=== PATIENT | female | born 1955 | race American Indian/Alaskan Native ===

== ENCOUNTER 2017-04-13 12:53 | Emergency (ER) | payer SELFPAY ==
[2017-04-13 14:00] LABS: Basophils % (Auto) 1.8 % (0.0-1.8); Eosinophils % (Auto) 6.1 % (0.0-4.3); Hematocrit 39.6 % (30.3-42.9); Hemoglobin 13.3 gm/dl (10.1-14.3); Mean Corpuscular HGB Conc 34 % (30-34); Mean Corpuscular Hemoglobin 29 pg (28-32); Mean Corpuscular Volume 87 fl (79-97); Platelet Count 255 K/mm3 (140-440); Red Blood Count 4.54 M/mm3 (3.65-5.03); Red Cell Distribution Width 13.7 % (13.2-15.2); White Blood Count 6.8 K/mm3 (4.5-11.0)
[2017-04-13 14:11] LABS: Anion Gap 16 mmol/L; BUN/Creatinine Ratio 22.85; Blood Urea Nitrogen 16 mg/dL (7-17); Calcium 8.7 mg/dL (8.4-10.2); Carbon Dioxide 24 mmol/L (22-30); Chloride 98.3 mmol/L (98-107); Glucose 282 mg/dL (65-100); Potassium 3.9 mmol/L (3.6-5.0); Sodium 134 mmol/L (137-145)
[2017-04-13] MEDS ORDERED: ASPIRIN PO ONE (20:41)
--- NOTE | 2017-04-13 20:45 | Emergency Department Report ---
HPI - General Chief Complaint: Chest Pain Time Seen by Provider: 04/13/17 20:29 - HPI HPI: Room 5 The patient is 61-year-old female presenting with a chief complaint of back and chest pain. The patient states for 1 week she is a constant pain in her right back radiating to her chest. Patient states she also has had intermittent isolated chest pain. The patient states occasionally her pain is associated with shortness of breath and nausea. Patient admits to occasional diaphoresis when the pain does not relent. Patient denies vomiting. The patient states she has pain currently gives a score of 6/10. Patient states she's never had a stress test or cardiac catheterization. The patient describes the pain as burning/pinching/stabbing Location: Right back, chest Duration: 1 week Quality: [see above] Severity: 6/10 Modifying factors: [see above] Context: [see above] Mode of transportation: Unknown ED Past Medical Hx - Past Medical History Hx Diabetes: Yes (DIET CONTROLLED) - Surgical History Past Surgical History?: No - Family History Family history: no significant - Social History Smoking Status: Current Every Day Smoker (approximately one pack per day) Substance Use Type: None - Medications Home Medications: Home Medications Medication Instructions Recorded Confirmed Last Taken Type Aspirin EC [Aspirin Enteric Coated 325 mg PO QDAY #30 tablet. 04/13/17 Unknown Rx TAB] Cyclobenzaprine [Flexeril] 10 mg PO TID PRN #14 tablet 04/13/17 Unknown Rx ED Review of Systems ROS: Stated complaint: CHEST AND BACK PAIN Other details as noted in HPI Comment: All other systems reviewed and negative Constitutional: diaphoresis Eyes: denies: eye pain, eye discharge, vision change ENT: denies: ear pain, throat pain Respiratory: shortness of breath Cardiovascular: chest pain Endocrine: no symptoms reported Gastrointestinal: nausea. denies: vomiting Genitourinary: denies: urgency, dysuria, discharge Musculoskeletal: back pain, myalgia Skin: denies: rash, lesions Neurological: denies: headache, weakness, paresthesias Psychiatric: denies: anxiety, depression Hematological/Lymphatic: denies: easy bleeding, easy bruising Physical Exam - Physical Exam Vital Signs: Vital Signs 04/13/17 04/13/17 04/13/17 13:21 20:01 20:04 Temperature 99.0 F 98.3 F Pulse Rate 98 H 81 Respiratory 16 20 20 Rate Blood Pressure 178/74 Blood Pressure 181/90 [Left] O2 Sat by Pulse 99 98 Oximetry Physical Exam: GENERAL: The patient is well-developed well-nourished female lying on stretcher not appearing to be in acute distress. [] HEENT: Normocephalic. Atraumatic. Extraocular motions are intact. Patient has moist mucous membranes. NECK: Supple. Trachea midline CHEST/LUNGS: Clear to auscultation. There is no respiratory distress noted. HEART/CARDIOVASCULAR: Regular. There is no tachycardia. There is no gallop rub or murmur. 2+ radial pulse on the right ABDOMEN: Abdomen is soft, nontender. Patient has normal bowel sounds. There is no abdominal distention. SKIN: There is no rash. There is no edema. There is no diaphoresis. NEURO: The patient is awake, alert, and oriented. The patient is cooperative. The patient has normal speech MUSCULOSKELETAL: There is no tenderness to palpation of the right back. There is some back pain with range of motion of the right upper extremity but it does not cause radiation to the chest. There is no evidence of acute injury. ED Course Vital Signs 04/13/17 04/13/17 04/13/17 13:21 20:01 20:04 Temperature 99.0 F 98.3 F Pulse Rate 98 H 81 Respiratory 16 20 20 Rate Blood Pressure 178/74 Blood Pressure 181/90 [Left] O2 Sat by Pulse 99 98 Oximetry ED Medical Decision Making - Lab Data Result diagrams: 04/13/17 13:32 04/13/17 13:32 Laboratory Tests 04/13/17 04/13/17 04/13/17 13:32 13:32 16:25 WBC 6.8 RBC 4.54 Hgb 13.3 Hct 39.6 MCV 87 MCH 29 MCHC 34 RDW 13.7 Plt Count 255 Lymph % (Auto) 24.0 [place] % (Auto) 5.9 Eos % (Auto) 6.1 H Baso % (Auto) 1.8 Lymph # 1.6 [place] # 0.4 Eos # 0.4 Baso # 0.1 Seg Neutrophils % 62.2 Seg Neutrophils # 4.2 Sodium 134 L Potassium 3.9 Chloride 98.3 Carbon Dioxide 24 Anion Gap 16 BUN 16 Creatinine 0.7 Estimated GFR > 60 BUN/Creatinine Ratio 22.85 Glucose 282 H Calcium 8.7 Troponin T < 0.010 < 0.010 04/13/17 19:03 WBC RBC Hgb Hct MCV MCH MCHC RDW Plt Count Lymph % (Auto) [place] % (Auto) Eos % (Auto) Baso % (Auto) Lymph # [place] # Eos # Baso # Seg Neutrophils % Seg Neutrophils # Sodium Potassium Chloride Carbon Dioxide Anion Gap BUN Creatinine Estimated GFR BUN/Creatinine Ratio Glucose Calcium Troponin T < 0.010 - EKG Data -: EKG Interpreted by Me EKG shows normal: sinus rhythm Rate: normal - EKG Data When compared to previous EKG there are: no significant change Interpretation: nonspecific ST-T wave chirag (T-wave inversion in lead 3) - Radiology Data Radiology results: image reviewed (chest x-ray) interpreted by me: Chest x-ray-no focal infiltrates, no pneumothorax - Medical Decision Making I discussed with patient at length my concern for her chest pain given her history of diabetes and smoking. I explained although some of her pain can be reproduced by range of motion, musculoskeletal pain should not cause diaphoresis , shortness of breath or nausea. I explained to the patient the normal cardiac enzymes and a single normal EKG does not rule out acute coronary syndrome. Patient verbalized understanding still desires leave the hospital AGAINST MEDICAL ADVICE. Patient advised if she changes her mind she should return to the hospital immediately for further evaluation Critical care attestation.: If time is entered above; I have spent that time in minutes in the direct care of this critically ill patient, excluding procedure time. ED Disposition Clinical Impression: Chest pain, Back pain Disposition: LEFT AGAINST MEDICAL ADVICE Is pt being admited?: No Does the pt Need Aspirin: Yes Condition: Undetermined Instructions: Chest Pain (ED) Additional Instructions: Return to the emergency department immediately should you change your mind about leaving AGAINST MEDICAL ADVICE, develop worsening symptoms, fever, inability to tolerate food or liquid or any other concerns. Prescriptions: Aspirin EC [Aspirin Enteric Coated TAB] 325 mg PO QDAY #30 tablet. Cyclobenzaprine [Flexeril] 10 mg PO TID PRN #14 tablet PRN Reason: Muscle Spasm Referrals: SHAMEKA BE MD [Staff Physician] - [facility] (Dr. Be is a practice support specialist. Please follow up with him in immediately for evaluation) ADELAIDA HALE MD [Staff Physician] - 3-5 Days (Dr. Hale is a primary physician. He may follow up with him to be established as a patient) WAYNE RIVERA MD [Staff Physician] - 3-5 Days (Dr. Rivera is an orthopedic surgeon. You may follow up with him for further evaluation if you're cleared by a practice support specialist) Forms: AMA Form Time of Disposition: 20:51 (patient leaving AMA)
[2017-04-13 21:00] VITALS: BP 169/82
--- NOTE | 2017-04-14 09:15 | XRay Report ---
Chest 2 views: History: Chest pain, back pain. Findings: Normal cardiomediastinal silhouette. Trachea is midline. No consolidation, pneumothorax or pleural effusion. Impression: No acute cardiopulmonary findings.
== END 2017-04-13 20:58 | disposition left against medical advice (07) ==
LOC: ED 12:53
DX: R07.9 Chest pain, unspecified (principal); M54.9 Dorsalgia, unspecified; E11.9 Type 2 diabetes mellitus without complications; F17.200 Nicotine dependence, unspecified, uncomplicated; Z79.82 Long term (current) use of aspirin
CPT/HCPCS: 36415; 71020; 80048; 84484; 85025; 93005; 93010